=== PATIENT | female | born 1965 | race Caucasian/White ===

== ENCOUNTER 2017-09-20 16:47 | Outpatient (CLI) | payer MEDICAID ==
--- NOTE | 2017-09-20 17:34 | XRAY Preliminary Report ---
Exam: XR ABDOMEN ACUTE IMPRESSION: Negative abdominal series (including 1-view chest). [facility] SITE ID: [id number]
--- NOTE | 2017-09-20 17:37 | XRAY Report ---
EXAM: ABDOMINAL SERIES AND PA CHEST EXAM DATE: 09/20/2017 05:24 PM. CLINICAL HISTORY: ABD PAIN,NAUSEA,POST COLONOSCOPY. COMPARISON: None. TECHNIQUE: 2 views abdomen and 1 view chest. FINDINGS: CHEST: Lungs/Pleura: No focal opacities. No effusion or pneumothorax. Mediastinum: Within exam limitations, cardiomediastinal contour is normal. ABDOMEN: Bowel Gas Pattern: Within normal limits. No dilated loops or abnormal fluid levels. Free Air: None. Other: None. IMPRESSION: Negative abdominal series (including 1-view chest). [facility] Referring Provider Line: [phone] SITE ID: [id number]
== END 2017-09-20 16:48 | disposition home or self-care (01) ==
LOC: DI 16:47
PROVIDERS: ATTEND Specialist
DX: R10.9 Unspecified abdominal pain (principal); R11.0 Nausea
CPT/HCPCS: 74022

== ENCOUNTER 2017-12-24 19:34 | Outpatient (CLI) | payer MEDICAID | END 2017-12-24 19:35 | disposition critical access hospital (66) | LOC: EMS 19:34 | PROVIDERS: ATTEND Surgery | DX: R50.9 Fever, unspecified (principal); R11.2 Nausea with vomiting, unspecified | CPT/HCPCS: A0425; A0429 ==

== ENCOUNTER 2017-12-24 19:42 | Emergency (ER) | payer MEDICAID ==
[2017-12-24] MEDS ORDERED: KETOROLAC 60 MG/2 ML VIAL IVP STA (20:26)
[2017-12-24] MEDS ORDERED: ONDANSETRON 4 MG/2 ML VIAL IVP STA (20:26)
[2017-12-24] MEDS ORDERED: SODIUM CHLORIDE 0.9% 1,000 ML IV ONE ×2 (20:26→22:42)
[2017-12-24] MEDS ORDERED: ACETAMINOPHEN 500 MG TABLET PO STA (21:17)
[2017-12-24] MEDS ORDERED: PSEUDOEPHEDRINE 30 MG TABLET PO STA (21:17)
--- NOTE | 2017-12-24 21:19 | ED Physician Documentation ---
PD HPI URI - Stated complaint Stated Complaint: FEVER - Chief complaint Chief Complaint: Fever - History obtained from History obtained from: Patient - History of Present Illness Timing - onset: How many days ago (2) Timing details: Gradual onset, Still present Associated symptoms: Fever, Chills, Sweats, Nasal congestion, Rhinorrhea, Sinus pain, Dry cough Contributing factors: No: Sick contact, Travel Similar symptoms before: Has not had sx before Recently seen: Not recently seen - Additional information Additional information: Patient is a 37 year old female presenting to the emergency department for fevers, chills, cough, nasal congestion and nausea. Patient states that the symptoms have been going on for the last couple of days. Patient denies sick contacts or theses symptoms before. Patient has a history of colon CA but has been in remission for a number of years. Patient states that she is on disability for irritable bowel. Review of Systems Constitutional: reports: Fever, Chills, Myalgias Eyes: denies: Decreased vision Ears: reports: Ear pain Nose: reports: Rhinorrhea / runny nose, Congestion, Sinus pressure / pain Throat: reports: Sore throat Cardiac: denies: Chest pain / pressure, Palpitations Respiratory: reports: Cough. denies: Wheezing GI: reports: Abdominal Pain, Nausea. denies: Vomiting, Constipation, Diarrhea : denies: Dysuria, Frequency Skin: denies: Rash, Lesions Musculoskeletal: reports: Neck pain, Back pain, Extremity pain, Joint pain Neurologic: reports: Generalized weakness. denies: Focal weakness, Numbness Immunocompromised: denies: Immunocompromised, Chemotherapy PD PAST MEDICAL HISTORY - Past Medical History Past Medical History: Yes GI: Other Other Past Medical History: colon CA - Past Surgical History Past Surgical History: No - Present Medications Home Medications: Ambulatory Orders Medication Instructions Recorded Confirmed Ondansetron Odt [Zofran] 4 mg TL Q6H PRN #20 tablet 12/24/17 - Allergies Allergies/Adverse Reactions: Allergies Allergy/AdvReac Type Severity Reaction Status Date / Time decongestant Allergy Hives Uncoded 12/24/17 19:57 - Social History Does the pt smoke?: No Smoking Status: Never smoker Does the pt drink ETOH?: No Does the pt have substance abuse?: No - Immunizations Immunizations are current?: No - POLST Patient has POLST: No PD ED PE NORMAL - Vitals Vital signs reviewed: Yes - General General: Alert and oriented X 3 - HEENT HEENT: Atraumatic, PERRL - Neck Neck: Supple, no meningeal sign - Cardiac Cardiac: RRR, No murmur - Respiratory Respiratory: No respiratory distress - Abdomen Abdomen: Soft, Non tender, Non distended - Derm Derm: Normal color, Warm and dry, No rash - Extremities Extremities: No deformity - Neuro Neuro: Alert and oriented X 3, No motor deficit, No sensory deficit, Normal speech Eye Opening: Spontaneous Motor: Obeys Commands Verbal: Oriented GCS Score: 15 PD ED PE EXPANDED - HEENT HEENT: Atraumatic, PERRL, R TM bulging, L TM bulging, Right frontal sinus TTP, Left frontal sinus TTP, Nasal congestion, Rhinorrhea, Pharynx normal Results - Vitals Vitals: Vital Signs - 24 hr 12/24/17 12/24/17 12/24/17 19:55 20:15 21:11 Temperature 38.3 C H 36.8 C 38.1 C H Heart Rate 89 Respiratory 15 Rate Blood Pressure 106/63 O2 Saturation 96 12/24/17 12/24/17 12/25/17 22:47 23:53 00:14 Temperature 37.5 C 37 C Heart Rate 81 78 72 Respiratory 16 16 Rate Blood Pressure 81/48 L 91/56 L 94/58 L O2 Saturation 94 94 98 Oxygen O2 Source Room air - Labs Labs: Laboratory Tests 12/24/17 20:37 Influenza A (Rapid) Negative Influenza B (Rapid) POSITIVE H Influenza Types A,B Ag + H PD MEDICAL DECISION MAKING - ED course Complexity details: reviewed old records, reviewed results, re-evaluated patient , considered differential, d/w patient ED course: Patient was seen and examined at bedside. IV access was gained and labs were drawn. flu swab was performed. Patient was treated with toradol, zofran and a fluid bolus. Patient's flu came back positive. patient was borderline hypotensive and was treated with a second liter of fluid. Patient was able to tolerate PO and was stable for discharge with outpatient follow up. Departure - Departure Disposition: 01 Home, Self Care Clinical Impression: Influenza B Condition: Good Instructions: ED Flu Follow-Up: Ashly Funez PA-C [Primary Care Provider] - Within 3 Days Prescriptions: Ondansetron Odt [Zofran] 4 mg TL Q6H PRN #20 tablet PRN Reason: Nausea / Vomiting Comments: Your symptoms are being caused by influenza b. There is no specfic treatment for the flu, only to treat the symptoms. You can take over the counter cold and flu medications. You will be prescribed zofran for nausea and make sure you stay well hydrated with water or electrolyte solution. You should drink at least 100oz of fluids daily. You should follow up with your doctor if your symptoms don't improve. You may return to the emergency department at any time for new, worsening or uncontrollable symptoms. Discharge Date/Time: 12/25/17 01:16
[2017-12-25 00:15] VITALS: BP 94/58
== END 2017-12-25 01:16 | disposition home or self-care (01) ==
LOC: EDUNIT# → EDBD → ED 19:42
DX: J10.1 Influenza due to other identified influenza virus with other respiratory manifestations (principal); I95.9 Hypotension, unspecified; Z85.038 Personal history of other malignant neoplasm of large intestine
CPT/HCPCS: 87275; 87276; 96361; 96374; 96375; 99284; A9270

== ENCOUNTER 2018-05-02 12:50 | Emergency (ER) | payer MEDICAID ==
[2018-05-02] MEDS ORDERED: SODIUM CHLORIDE 0.9% 1,000 ML IV ONE (13:19)
--- NOTE | 2018-05-02 13:22 | ED Physician Documentation ---
PD HPI ABD PAIN - Stated complaint Stated Complaint: DIARRHEA/DIZZY - Chief complaint Chief Complaint: Abd Pain - History obtained from History obtained from: Patient - History of Present Illness Timing - onset: Other ((Pronounced O-diego). This is a 52-year-old woman who about 7 years ago was diagnosed with colon cancer, she had what she estimates as a 6 inch colectomy with temporary ileostomy that was later reversed. 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 However even at her baseline she says she has 20 bowel movements a day of small formed stools, but this became acutely worse about 7 days ago with diffuse abdominal pain and watery diarrhea that she cannot control. She actually has not eaten in about 24 hours because she is scared of having so many bowel movements. She is taken psyllium husk's and some pain medication which do not really help. Ask if she is ever been on cholestyramine or Imodium and she thinks she has been on Imodium before but not cholestyramine.) Review of Systems Ten Systems: 10 systems reviewed and negative Constitutional: reports: Fatigue. denies: Fever, Chills Cardiac: denies: Chest pain / pressure, Palpitations Respiratory: denies: Dyspnea, Cough GI: reports: Diarrhea, Bloody / black stool (Small amount of bright red blood per rectum which is not uncommon for her. She has what she describes as a normal colonoscopy at another facility last year.). denies: Abdominal Pain PD PAST MEDICAL HISTORY - Past Medical History Past Medical History: Yes GI: Other - Past Surgical History Past Surgical History: No - Present Medications Home Medications: Ambulatory Orders Medication Instructions Recorded Confirmed Ondansetron Odt [Zofran] 4 mg TL Q6H PRN #20 tablet 12/24/17 Cholestyramine [Questran] 4 gm PO DAILY #40 packet 05/02/18 Loperamide [Imodium] 2 mg PO QID PRN #20 capsule 05/02/18 - Allergies Allergies/Adverse Reactions: Allergies Allergy/AdvReac Type Severity Reaction Status Date / Time decongestant Allergy Hives Uncoded 05/02/18 13:02 - Social History Does the pt smoke?: No Smoking Status: Never smoker Does the pt drink ETOH?: No Does the pt have substance abuse?: No - Family History Family history: reports: Non contributory - Immunizations Immunizations are current?: No - POLST Patient has POLST: No PD ED PE NORMAL - Vitals Vital signs reviewed: Yes - General General: Alert and oriented X 3, No acute distress - HEENT HEENT: PERRL, EOMI - Neck Neck: Supple, no meningeal sign, No bony TTP - Cardiac Cardiac: RRR, No murmur - Respiratory Respiratory: No respiratory distress, Clear bilaterally - Abdomen Abdomen: Normal bowel sounds, Soft, Other (While I am examining her she persistently is saying that she is "tender" but makes no overt sign of tenderness with palpation.) - Back Back: No CVA TTP, No spinal TTP - Derm Derm: Normal color, Warm and dry - Extremities Extremities: No deformity, No tenderness to palpate, No edema, No calf tenderness / cord - Neuro Neuro: Alert and oriented X 3, Normal speech Results - Vitals Vitals: Vital Signs - 24 hr 05/02/18 05/02/18 05/02/18 12:58 14:46 16:47 Temperature 36.8 C 36.6 C Heart Rate 75 53 L 70 Respiratory 16 18 18 Rate Blood Pressure 114/68 87/64 L 101/58 L O2 Saturation 97 99 100 Oxygen O2 Source Room air - Labs Labs: Microbiology 05/02/18 15:30 Campylobacter Antigen Assay - Final Stool Laboratory Tests 05/02/18 05/02/18 05/02/18 13:30 13:30 13:30 WBC 5.5 RBC 4.52 Hgb 14.3 Hct 42.9 MCV 94.9 MCH 31.7 H MCHC 33.4 RDW 13.7 Plt Count 251 MPV 7.0 L Neut # (Auto) 3.3 Lymph # (Auto) 1.6 Morrill # (Auto) 0.4 Eos # (Auto) 0.2 Baso # (Auto) 0.0 Absolute Nucleated RBC 0.00 Nucleated RBC % 0.0 Sodium 137 Potassium 3.7 Chloride 105 Carbon Dioxide 24 Anion Gap 8.0 BUN 16 Creatinine 0.8 Estimated GFR (MDRD) 75 L Glucose 80 Calcium 8.9 Total Bilirubin 0.9 AST 17 ALT 10 Alkaline Phosphatase 79 Total Protein 7.1 Albumin 3.7 Globulin 3.4 Albumin/Globulin Ratio 1.1 Lipase 21 L TSH 0.66 - Rads (name of study) Ct A/P Radiology: EMP read contemporaneously (Normal with the exception of pelvic venous congestion and right renal lithiasis.) PD MEDICAL DECISION MAKING - ED course ED course: This is a 52-year-old woman with an extensive exacerbation of acute on chronic diarrhea. Her blood work and CT are reassuring. After stool sample was obtained which she was treated with cholestyramine and Imodium and GI/oncologic and primary care follow-up were advised. After the diagnostic she was fed, it still took quite a bit of time for her to produce a stool sample despite the severity of her diarrhea. The stool was rejected by the lab for several test because it was formed stool, not diarrhea. - Sepsis Event Vital Signs: Vital Signs - 24 hr 05/02/18 05/02/18 05/02/18 12:58 14:46 16:47 Temperature 36.8 C 36.6 C Heart Rate 75 53 L 70 Respiratory 16 18 18 Rate Blood Pressure 114/68 87/64 L 101/58 L O2 Saturation 97 99 100 Oxygen O2 Source Room air Departure - Departure Disposition: 01 Home, Self Care Clinical Impression: Abdominal pain, Diarrhea Condition: Good Record reviewed to determine appropriate education?: Yes Instructions: Abdominal Pain Follow-Up: [facility] [Provider Group] Lizett Holliday MD [Provider Admit Priv/Credential] - Jeannette Lu MD [Physician No Access] - Prescriptions: Cholestyramine [Questran] 4 gm PO DAILY #40 packet Loperamide [Imodium] 2 mg PO QID PRN #20 capsule PRN Reason: Diarrhea Comments: The names of local GI, oncology and primary care follow-up are on the form for your convenience to call and make appointments. Return if worsening or if new symptoms develop. The cholestyramine can be doubled to twice a day if ineffective at the once a day dose, that is the binding resin. Discharge Date/Time: 05/02/18 16:52
[2018-05-02] MEDS ORDERED: IOPAMIDOL-300 100 ML VIAL ONE (13:37)
[2018-05-02 13:42] LABS: BASOPHILS % (AUTO) 0.9 %; EOSINOPHILS # (AUTO) 0.2 10^3/uL (0.0-0.7); EOSINOPHILS % (AUTO) 3.8 %; HGB - HEMOGLOBIN 14.3 g/dL (12.0-16.0); LYMPHOCYTES # (AUTO) 1.6 10^3/uL (1.5-3.5); MEAN CORPUSCULAR HEMOGLOBIN 31.7 pg (27.0-31.0); MEAN CORPUSCULAR HGB CONC 33.4 g/dL (32.0-36.0); MEAN CORPUSCULAR VOLUME 94.9 fL (81.0-99.0); MONOCYTES # (AUTO) 0.4 10^3/uL (0.0-1.0); MONOCYTES % (AUTO) 6.8 %; NEUTROPHILS # (AUTO) 3.3 10^3/uL (1.5-6.6); NEUTROPHILS % (AUTO) 59.5 %; PLT - PLATELET COUNT 251 10^3/uL (130-450); RED BLOOD COUNT 4.52 10^6/uL (4.20-5.40); RED CELL DISTRIBUTION WIDTH 13.7 % (12.0-15.0); WHITE BLOOD COUNT 5.5 x10^3/uL (4.8-10.8)
[2018-05-02 14:01] LABS: ALBUMIN 3.7 g/dL (3.2-5.5); ALBUMIN/GLOBULIN RATIO 1.1 (1.0-2.2); BILIRUBIN,TOTAL 0.9 mg/dL (0.2-1.0); CALCIUM 8.9 mg/dL (8.5-10.3); CREATININE 0.8 mg/dL (0.4-1.0); TOTAL PROTEIN 7.1 g/dL (6.7-8.2)
[2018-05-02] MEDS ORDERED: IOPAMIDOL-300 100 ML VIAL IVP ONE (14:24)
--- NOTE | 2018-05-02 14:47 | CT Report ---
Procedure Date: 05/02/2018 Accession Number: [id number] / [id number] Procedure: CT - Abdomen/Pelvis W/ CPT Code: FULL RESULT: EXAM: CT ABDOMEN AND PELVIS EXAM DATE: 05/02/2018 02:25 PM. CLINICAL HISTORY: Abdominal pain COMPARISONS: None. TECHNIQUE: Routine helical CT imaging was performed through the abdomen and pelvis. IV contrast: 100 cc Isovue-300. Enteric contrast: No. Reconstructions: Coronal and sagittal. In accordance with CT protocol optimization, one or more of the following dose reduction techniques were utilized for this exam: automated exposure control, adjustment of mA and/or KV based on patient size, or use of iterative reconstructive technique. FINDINGS: Lung Bases: Unremarkable. Liver: Subcentimeter hypodensity within segment 8 of the liver is too small to characterize. No suspicious hepatic abnormalities are seen. Gallbladder/Bile Ducts: Unremarkable. Spleen: Normal. Pancreas: Normal. Adrenal Glands: Normal. Kidneys: There is right nephrolithiasis. There is no evidence of hydronephrosis. There is a left parapelvic cyst. Peritoneal Cavity/Bowel: Stomach, small bowel, and colon demonstrate no acute abnormalities. No intraperitoneal free air or free fluid. No enlarged mesenteric or retroperitoneal lymph nodes. There are surgical sutures adjacent to the distal ileum and within the low rectal region. The appendix is well visualized and normal. Pelvic Organs: Uterus and adnexa demonstrate no acute abnormalities. There are prominent periuterine veins. The urinary bladder is decompressed. Vasculature: No aneurysms or other significant abnormality. Bones: No significant abnormality. Other: Patient has undergone anterior abdominal wall hernia repair. IMPRESSION: 1. No acute solid or hollow viscus organ abnormalities to account for the patient's presentation. No evidence of appendicitis or bowel obstruction. No mesenteric inflammation. 2. There is right nephrolithiasis. No evidence of distal obstructing stone or hydronephrosis. 3. There are prominent periuterine veins. This is nonspecific but can be associated with pelvic pain. [facility]
[2018-05-02] MEDS ORDERED: CHOLESTYRAMINE 4 GM PACKET PO STA (14:58)
[2018-05-02] MEDS ORDERED: LOPERAMIDE 2 MG CAPSULE PO STA (14:58)
[2018-05-02 16:47] VITALS: BP 101/58
== END 2018-05-02 16:52 | disposition home or self-care (01) ==
LOC: ED 12:50
DX: R10.9 Unspecified abdominal pain (principal); R19.7 Diarrhea, unspecified; C18.9 Malignant neoplasm of colon, unspecified
CPT/HCPCS: 36415; 74177; 80053; 83690; 84443; 85025; 87045; 87046; 87177; 87209; 87493; 96360; 96361; 99284; A9270; Q9967

== ENCOUNTER 2018-11-19 07:49 | Outpatient (CLI) | payer MEDICAID ==
[2018-11-19 08:15] LABS: BASOPHILS % (AUTO) 0.8 %; EOSINOPHILS # (AUTO) 0.4 10^3/uL (0.0-0.7); EOSINOPHILS % (AUTO) 8.6 %; HGB - HEMOGLOBIN 14.5 g/dL (12.0-16.0); LYMPHOCYTES # (AUTO) 1.4 10^3/uL (1.5-3.5); LYMPHOCYTES % (AUTO) 32.3 %; MEAN CORPUSCULAR HGB CONC 33.9 g/dL (32.0-36.0); MEAN CORPUSCULAR VOLUME 94.5 fL (81.0-99.0); MEAN PLATELET VOLUME 7.2 fL (7.9-10.8); MONOCYTES # (AUTO) 0.4 10^3/uL (0.0-1.0); MONOCYTES % (AUTO) 8.1 %; NEUTROPHILS # (AUTO) 2.2 10^3/uL (1.5-6.6); NEUTROPHILS % (AUTO) 50.2 %; PLT - PLATELET COUNT 229 10^3/uL (130-450); RED BLOOD COUNT 4.51 10^6/uL (4.20-5.40); RED CELL DISTRIBUTION WIDTH 14.2 % (12.0-15.0); WHITE BLOOD COUNT 4.4 x10^3/uL (4.8-10.8)
[2018-11-19 08:26] LABS: ALBUMIN 3.7 g/dL (3.2-5.5); ALBUMIN/GLOBULIN RATIO 1.2 (1.0-2.2); ALKALINE PHOSPHATASE 86 IU/L (42-121); ALT ALANINE AMINOTRANSFERASE 11 IU/L (10-60); AST ASPARTATE AMINOTRANSFERASE 18 IU/L (10-42); BILIRUBIN,TOTAL 0.6 mg/dL (0.2-1.0); BUN - BLOOD UREA NITROGEN 18 mg/dL (6-20); CALCIUM 8.8 mg/dL (8.5-10.3); CARBON DIOXIDE - CO2 25 mmol/L (21-32); CHLORIDE 105 mmol/L (101-111); CHOL/HDL RATIO 2.7 (<4.4); CHOLESTEROL 189 mg/dL; CREATININE 0.6 mg/dL (0.4-1.0); GFR - MDRD 104 (>89); GLUCOSE 101 mg/dL (70-100); HDL CHOLESTEROL 70 mg/dL; LDL CHOLESTEROL,CALCULATED 109 mg/dL; LDL/HDL RATIO 1.6 (<4.4); SODIUM 137 mmol/L (135-145); TOTAL PROTEIN 6.9 g/dL (6.7-8.2); TROPONIN I < 0.04 ng/mL (<0.49); VLDL CHOLESTEROL 10 mg/dL
[2018-11-19 08:28] LABS: CREATINE KINASE MB 1.2 ng/mL (0.6-6.3)
== END 2018-11-19 07:50 | disposition home or self-care (01) ==
LOC: LAB 07:49
PROVIDERS: ATTEND Family Medicine
DX: R00.2 Palpitations (principal)
CPT/HCPCS: 36415; 80053; 80061; 82553; 83721; 84443; 84484; 85025; 85379

== ENCOUNTER 2018-12-23 15:15 | Outpatient (CLI) | payer MEDICAID ==
[2018-12-24 13:32] LABS: HEPATITIS C ANTIBODY NON-REACTIVE (NON-REACTIVE)
[2018-12-24 15:32] LABS: HIV AG/AB 4TH GEN NON-REACTIVE (NON-REACTIVE)
== END 2018-12-23 23:59 | disposition home or self-care (01) ==
LOC: LAB.WCP 15:15
PROVIDERS: ATTEND Family Medicine
DX: Z11.3 Encounter for screening for infections with a predominantly sexual mode of transmission (principal)
CPT/HCPCS: 36415; 81599; 86592; 86803; 87389; 87480; 87510; 87660

== ENCOUNTER 2019-02-26 11:25 | Outpatient (CLI) | payer MEDICAID ==
--- NOTE | 2019-02-26 12:04 | XRAY Report ---
Reason: HAND JOINT,RIGHT Procedure Date: 02/26/2019 Accession Number: [id number] / [id number] Procedure: WCP - Hand 2 View RT CPT Code: FULL RESULT: EXAM: RIGHT HAND RADIOGRAPHY EXAM DATE: 02/26/2019 11:42 AM. CLINICAL HISTORY: Patient has a foreign body in the soft tissue of the proximal phalanx of the fifth digit. This foreign body has been present for 3 months. COMPARISON: None. TECHNIQUE: 2 views. FINDINGS: Bones: Normal. No fractures or bone lesions. Joints: There are mild degenerative changes at the first carpometacarpal interaction. No significant degenerative changes are seen at the interphalangeal interactions and no erosions are detected. There is no subluxation. Soft Tissues: Predominant volar swelling of the soft tissues of the little finger is identified without a visible foreign body. IMPRESSION: Soft tissue swelling of the proximal fifth digit without radiopaque foreign body detected. If clinical examination is suggestive of lipoma or a collection and radiologic confirmation is desired, ultrasound represents a good modality. [facility]
== END 2019-02-26 11:26 | disposition home or self-care (01) ==
LOC: DI.WCP 11:25
PROVIDERS: ATTEND Family Medicine
DX: M79.641 Pain in right hand (principal); R22.31 Localized swelling, mass and lump, right upper limb

== ENCOUNTER 2019-03-23 15:07 | Outpatient (CLI) | payer MEDICAID ==
--- NOTE | 2019-04-03 11:38 | Mammography Report ---
Reason: SCREENING MAMMOGRAM Procedure Date: 03/23/2019 Accession Number: [id number] / [id number] Procedure: ADELINA - Screening Mammo Dig Bilat CPT Code: FULL RESULT: EXAM: Screening Mammo Dig Bilat DATE: 03/23/2019 3:46 PM CLINICAL HISTORY: Screening TECHNIQUE: (B) - Bilateral CC and MLO views were obtained. COMPARISON: 12/12/2011 PARENCHYMAL PATTERN: (A) - The breasts demonstrate scattered fibroglandular densities bilaterally. FINDINGS: Small breast asymmetry left breast only, seen only on CC view lateral hemisphere, middle one third. Otherwise, there are no suspicious masses, calcifications, or areas of distortion. IMPRESSION: Incomplete examination. BI-RADS category 0. RECOMMENDATION: Consider left breast 3-D mammography and left breast ultrasound if indicated. BI-RADS CATEGORY: (0) - Incomplete Examination - need additional evaluation. STANDARD QUALIFYING STATEMENTS: 1. This examination was not reviewed with the aid of Computer-Aided Detection (CAD). 2. A negative or benign imaging report should not preclude biopsy if clinically suspicious findings are present. 3. Dense breasts may obscure an underlying neoplasm. 4. This examination was reviewed without the aid of 3D breast imaging (tomosynthesis).
== END 2019-03-23 15:08 | disposition home or self-care (01) ==
LOC: DI 15:07
PROVIDERS: ATTEND Family Medicine
DX: Z12.31 Encounter for screening mammogram for malignant neoplasm of breast (principal); R92.8 Other abnormal and inconclusive findings on diagnostic imaging of breast
CPT/HCPCS: 77067

== ENCOUNTER 2019-03-24 07:33 | Day surgery (SDC) | payer MEDICAID ==
[~2019-03-24 07:33] MED LIST: CEFAZOLIN SODIUM IN 0.9 % NACL 2 GM/100 ML BAG IV ONE
[2019-03-24] MEDS ORDERED: BUPIVACAINE 0.25% PF 30 ML VIAL ONE (07:54)
[2019-03-24] MEDS ORDERED: LACTATED RINGERS 1,000 ML IV ONE (07:58)
--- NOTE | 2019-03-24 08:13 | ANESTHESIA ---
Pre-Anesthesia VS, & Labs - Diagnosis Foreign body right fifth finger - Procedure Excise FB right fifth finger Vital Signs: Temp Pulse Resp BP Pulse Ox 36.2 C L 61 16 96/69 99 03/24/19 07:50 03/24/19 07:50 03/24/19 07:50 03/24/19 07:50 03/24/19 07:50 Height 5 ft 4 in Weight (kg) 84.2 kg Body Mass Index 30.9 - NPO >8 hours - Is Patient ?: No - Lab Results Lab results reviewed: No Home Medications and Allergies Home Medications: Ambulatory Orders HYDROcod/ACETAM 5/325 [Horton 5/325] 1 - 2 ea PO Q6H PRN 03/23/19 HYDROcod/ACETAM 5/325 [Horton 5/325] 1 - 2 ea PO Q6H PRN 03/23/19 Allergies/Adverse Reactions: Allergies Allergy/AdvReac Type Severity Reaction Status Date / Time decongestant Allergy Hives Uncoded 05/02/18 13:02 Anes History & Medical History - Anesthetic History Anesthesia Complications: reports: No previous complications Family history of Anesthesia Complications: Denies Family history of Malignant Hyperthermia: Denies - Medical History Cardiovascular: reports: None Pulmonary: reports: None, Other (Severe post nasal drip) Gastrointestinal: reports: GERD, Other Urinary: reports: Kidney stones Neuro: reports: None Musculoskeletal: reports: Osteoarthritis, Gout Endocrine/Autoimmune: reports: None Blood Disorders: reports: None Skin: reports: None Smoking Status: Never smoker Psychosocial: reports: No issues indicated - Surgical History General: Bowel surgery, Colonoscopy, Other Orthopedic: Other Exam General: Alert, Oriented x3, Cooperative Dental: WNL Mouth Opening: Greater than 4 Fingerbreadths Neck Mobility: Normal Mallampati classification: I Thyromental Distance: greater than 6 cm Respiratory: Lungs clear Cardiovascular: Regular rate Neurological: Normal speech Mental/Cognitive Status: Alert/Oriented X3, Normal for patient Cognitive Status: Within normal limits Plan Anesthesia Type: MAC Consent for Procedure(s) Verified and Reviewed: Yes Code Status: Attempt Resuscitation ASA classification: 2-Mild systemic disease Is this case an emergency?: No
[2019-03-24] MEDS ORDERED: KETOROLAC 30 MG/ML VIAL IVP ONE (08:30)
[2019-03-24] MEDS ORDERED: MIDAZOLAM 2 MG/2 ML VIAL IVP ONE (08:30)
[2019-03-24] MEDS ORDERED: KETAMINE 500 MG/10 ML VIAL IVP ONE (08:30)
[2019-03-24] MEDS ORDERED: SODIUM CHLORIDE 0.9% 10 ML VIAL IV ONE (08:30)
[2019-03-24] MEDS ORDERED: BUPIVACAINE 0.25% PF 30 ML VIAL SUBQ ONE ×2 (08:46)
[2019-03-24] MEDS ORDERED: HYDROcod/ACETAM 5/325 MG TABLET PO PRN (09:10)
[2019-03-24] MEDS ORDERED: HYDROcod/ACETAM 5/325 MG TABLET ONE (10:25)
[2019-03-24 10:38] VITALS: BP 127/65
--- NOTE | 2019-03-24 14:13 | OPERATIVE REPORT ---
DATE OF SERVICE: 03/24/2019 Physician: Omayra Ayala MD PREOPERATIVE DIAGNOSIS: Foreign body proximal right fifth finger. POSTOPERATIVE DIAGNOSIS: Foreign body proximal right fifth finger. PROCEDURE PERFORMED: Excision of foreign body from right fifth finger. ATTENDING SURGEON: Omayra Ayala MD. ANESTHESIA: Local, MAC with Mary Lou Waller MD INDICATIONS FOR SURGERY: Patient is a 53-year-old female who remotely has had a penetrating injury o f her finger and she believes it was wood versus glass that penetrated her finger with a tiny punctur e wound and then subsequent healing, but tenderness and pain over the months that followed with a pro minence in the volar tissues and in the area of the proximal phalanx of the fifth finger not interfer ing with tendon function or neurovascular function. She presented to my office with negative x-rays, but soft tissue swelling and symptoms that suggested retained radiolucent foreign body and surgery w as recommended. The patient was informed that excision would require a slightly extensile exposure b ecause of its probable location adjacent to the ulnar digital nerve and bundle. DESCRIPTION OF OPERATIVE PROCEDURE: Patient was taken to the operating room. She was given light se dation and a digital block anesthetic using 1% lidocaine and 0.25% Marcaine plain, approximately 6-7 mL in the base of the finger. The Esmarch was used as a tourniquet, placing the Esmarch tight up to the volar mid forearm. Following a surgical timeout, the procedure progressed with a slightly extens ile incision in a V-shape extending from the proximal crease of the finger to the PIP joint crease an d extending slightly beyond that to gain better exposure. In the subcutaneous tissue was found a sli ght amount of foreign body reaction and not purulence, but some brownish discolored tissue. In the m iddle of this tissue was found a very black-appearing sliver of wood about 12 mm in length and at its base, a few millimeters in width and very much wedge needle shaped. The base of this was sitting di rectly under the ulnar neurovascular bundle and the sliver was able to be extracted. The area was th en flushed thoroughly and closure was then performed utilizing interrupted 4-0 nylon suture and steri le dressings were applied. The patient was taken to the recovery room in stable condition. ESTIMATED BLOOD LOSS: Minimal, less than 5 mL. COMPLICATIONS: None. SPONGE AND NEEDLE COUNTS: Correct. TD: 03/24/2019 10:48
== END 2019-03-24 07:34 | disposition home or self-care (01) ==
LOC: SDS 07:33
PROVIDERS: ATTEND Orthopaedic Surgery
PROC: 0JCJ0ZZ Extirpation of Matter from Right Hand Subcutaneous Tissue and Fascia, Open Approach (ICD-10-PCS; principal; 2019-03-24 08:30)
DX: S61.246A Puncture wound with foreign body of right little finger without damage to nail, initial encounter (principal); W45.8XXA Other foreign body or object entering through skin, initial encounter; W22.8XXA Striking against or struck by other objects, initial encounter; Y92.003 Bedroom of unspecified non-institutional (private) residence as the place of occurrence of the external cause; E66.9 Obesity, unspecified; Z68.31 Body mass index [BMI] 31.0-31.9, adult; Z87.891 Personal history of nicotine dependence; Z85.038 Personal history of other malignant neoplasm of large intestine; Z90.49 Acquired absence of other specified parts of digestive tract
CPT/HCPCS: 10120; A9270; J0690; J7120

== ENCOUNTER 2019-04-14 12:47 | Outpatient (CLI) | payer MEDICAID ==
--- NOTE | 2019-04-14 13:59 | Mammography Report ---
Reason: ABNORMAL MAMMOGRAM Procedure Date: 04/14/2019 Accession Number: [id number] / [id number] Procedure: ADEILNA - Diag Special Views Dig LT CPT Code: FULL RESULT: EXAM: Diag Special Views Dig LT DATE: 04/14/2019 1:11 PM CLINICAL HISTORY: Diagnostic examination. The patient is recalled from screening for a left breast asymmetry. TECHNIQUE: (L) - Left left spot CC and ML images are obtained. Focused left breast ultrasound is performed. COMPARISON: 03/23/2019 and 12/12/2011. PARENCHYMAL PATTERN: (A) - The breast(s) demonstrate(s) scattered fibroglandular densities. FINDINGS: In the left upper outer breast approximately 10 cm from the nipple on the MLO view and CC view is a isodense well-circumscribed 5 mm focal asymmetry. Additional left upper outer breast quadrant focused ultrasound reveals only normal soft tissues with no abnormal mass, architectural distortion or collection. The finding is not definitely sonographically replicated. Spot compression view demonstrates normal breast tissue in the left upper outer breast, area of previous concern. There are no suspicious masses, calcifications, or areas of distortion. IMPRESSION: Benign findings. BI-RADS category 2. RECOMMENDATION: (ANNUAL) - Recommend routine annual screening mammography. BI-RADS CATEGORY: (2) - Benign Findings. STANDARD QUALIFYING STATEMENTS: 1. This examination was not reviewed with the aid of Computer-Aided Detection (CAD). 2. A negative or benign imaging report should not preclude biopsy if clinically suspicious findings are present. 3. Dense breasts may obscure an underlying neoplasm. 4. This examination was reviewed without the aid of 3D breast imaging (tomosynthesis).
== END 2019-04-14 12:48 | disposition home or self-care (01) ==
LOC: DI 12:47
PROVIDERS: ATTEND Family Medicine
DX: R92.8 Other abnormal and inconclusive findings on diagnostic imaging of breast (principal)
CPT/HCPCS: 76642

== ENCOUNTER 2020-09-30 07:00 | Outpatient (CLI) | payer MEDICAID ==
[2020-09-30 18:15] LABS: BASOPHILS # (AUTO) 0.1 10^3/uL (0.0-0.1); BASOPHILS % (AUTO) 0.9 %; EOSINOPHILS # (AUTO) 0.5 10^3/uL (0.0-0.7); EOSINOPHILS % (AUTO) 7.8 %; HGB - HEMOGLOBIN 14.3 g/dL (12.0-16.0); LYMPHOCYTES % (AUTO) 35.4 %; MEAN PLATELET VOLUME 9.5 fL (7.9-10.8); MONOCYTES # (AUTO) 0.5 10^3/uL (0.0-1.0); MONOCYTES % (AUTO) 8.7 %; NEUTROPHILS # (AUTO) 2.7 10^3/uL (1.5-6.6); NEUTROPHILS % (AUTO) 46.9 %; PLT - PLATELET COUNT 303 10^3/uL (130-450); RED BLOOD COUNT 4.47 10^6/uL (4.20-5.40); RED CELL DISTRIBUTION WIDTH 13.9 % (12.0-15.0); WHITE BLOOD COUNT 5.8 x10^3/uL (4.8-10.8)
[2020-09-30 18:47] LABS: ALBUMIN 3.9 g/dL (3.2-5.5); ALBUMIN/GLOBULIN RATIO 1.3 (1.0-2.2); ALKALINE PHOSPHATASE 99 IU/L (42-121); ALT ALANINE AMINOTRANSFERASE 16 IU/L (10-60); AST ASPARTATE AMINOTRANSFERASE 24 IU/L (10-42); BILIRUBIN,TOTAL 0.5 mg/dL (0.2-1.0); BUN - BLOOD UREA NITROGEN 18 mg/dL (6-20); CALCIUM 9.2 mg/dL (8.5-10.3); CARBON DIOXIDE - CO2 26 mmol/L (21-32); CHLORIDE 105 mmol/L (101-111); CREATININE 0.7 mg/dL (0.4-1.0); GLUCOSE 78 mg/dL (70-100); SODIUM 140 mmol/L (135-145); TOTAL PROTEIN 6.9 g/dL (6.7-8.2)
[2020-09-30 19:25] LABS: CRP - C-REACTIVE PROTEIN < 1.0 mg/dL (0-1.0)
[2020-09-30 19:37] LABS: RHEUMATOID FACTOR NEGATIVE (Negative)
== END 2020-09-30 23:59 | disposition home or self-care (01) ==
LOC: LAB.WCP 07:00
PROVIDERS: ATTEND Nurse Practitioner Family
DX: Z00.00 Encounter for general adult medical examination without abnormal findings (principal); M25.50 Pain in unspecified joint
CPT/HCPCS: 36415; 80053; 85025; 85651; 86140; 86430

== ENCOUNTER 2020-10-27 08:00 | Outpatient (CLI) | payer MEDICAID | END 2020-10-27 23:56 | disposition home or self-care (01) | LOC: LAB.R 08:00 | PROVIDERS: ATTEND Family Medicine | DX: L04.0 Acute lymphadenitis of face, head and neck (principal); Z20.822 Contact with and (suspected) exposure to COVID-19 | CPT/HCPCS: 87275; 87276 ==

== ENCOUNTER 2021-07-17 06:06 | Emergency (ER) | payer MEDICAID ==
[2021-07-17] MEDS ORDERED: SODIUM CHLORIDE 0.9% 1,000 ML IV STA (06:56)
--- NOTE | 2021-07-17 06:57 | ED Physician Documentation ---
PD HPI SYNCOPE - Stated complaint Stated Complaint: DIZZY/BLURRED VISION - Chief complaint Chief Complaint: Neuro - History obtained from History obtained from: Patient - History of Present Illness Witnessed: Unwitnessed Timing - onset: Today, Last night Preceding symptoms: Light headed (she says she felt lightheaded with blurred vision last night and again this morning with standing/sitting up. Denies vertigo, symptoms with head movement, nor vision loss (blurry and distorted).). No: Headache (but states her head "feels heavy"), Chest pain, Dyspnea, Abdominal pain, Nausea / vomiting Associated symptoms: Vision changes, Diaphoresis. No: Chest pain, Nausea / vomiting Contributing factors: Just stood up. No: Recent med change, Noxious stimulae Injury occurred: No: Fell, Head injury, Neck injury Similar symptoms before: Has not had sx before, Other (has had general fatigue and tiredness the past month. no noted wieght loss. Believes she has had normal fluid intake.) Recently seen: Not recently seen Review of Systems Constitutional: denies: Fever, Chills Nose: denies: Rhinorrhea / runny nose, Congestion Throat: denies: Sore throat Cardiac: denies: Chest pain / pressure, Palpitations, Pedal edema, Calf pain Respiratory: denies: Dyspnea, Cough GI: reports: Nausea. denies: Abdominal Pain, Vomiting, Diarrhea Neurologic: reports: Generalized weakness. denies: Syncope, Altered mental status, Head injury, LOC Endocrine: denies: Weight loss, Easy bruising / bleeding Immunocompromised: reports: Other (prior colon cancer 8 years ago localized with surgery and chemo. No recent problems. She is concerned about recurrence though.). denies: Immunocompromised PD PAST MEDICAL HISTORY - Past Medical History Past Medical History: Yes Respiratory: None, Other Neuro: None GI: Other (colon cancer 8 years ago, clear the past 7 years. ) Other Past Medical History: colon ca - Past Surgical History Past Surgical History: Yes - Present Medications Home Medications: Ambulatory Orders Medication Instructions Recorded Confirmed No Known Home Medications 07/17/21 07/17/21 - Allergies Allergies/Adverse Reactions: Allergies Allergy/AdvReac Type Severity Reaction Status Date / Time decongestant Allergy Hives Uncoded 07/17/21 06:20 - Social History Does the pt smoke?: No Smoking Status: Never smoker Does the pt drink ETOH?: No Does the pt have substance abuse?: No - Immunizations Immunizations are current?: No - POLST Patient has POLST: No PD ED PE NORMAL - Vitals Vital signs reviewed: Yes - General General: Alert and oriented X 3, No acute distress, Well developed/nourished - HEENT HEENT: PERRL, EOMI (no nystagmus), Pharynx benign. No: Moist mucous membranes - Neck Neck: Supple, no meningeal sign, No adenopathy - Cardiac Cardiac: No murmur. No: RRR (slightly irregular. 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 No: ST elevation c/w ischemia, ST depression Compare to prior EKG: Old EKG unavailable - Labs Labs: Laboratory Tests 07/17/21 07/17/21 07/17/21 06:34 06:34 06:34 WBC 5.8 RBC 4.75 Hgb 15.1 Hct 46.7 MCV 98.3 MCH 31.8 H MCHC 32.3 RDW 13.8 Plt Count 251 MPV 9.5 Neut # (Auto) 2.4 Lymph # (Auto) 2.5 [place] # (Auto) 0.5 Eos # (Auto) 0.4 Baso # (Auto) 0.1 Absolute Nucleated RBC 0.00 Nucleated RBC % 0.0 ESR 9 Sodium 141 Potassium 3.7 Chloride 106 Carbon Dioxide 25 Anion Gap 10.0 BUN 21 H Creatinine 0.6 Estimated GFR (MDRD) 103 Glucose 90 POC Whole Bld Glucose Calcium 8.9 Magnesium 2.1 Total Bilirubin 0.5 AST 16 ALT 11 Alkaline Phosphatase 92 Troponin I High Sens Total Protein 6.9 Albumin 4.0 Globulin 2.9 Albumin/Globulin Ratio 1.4 Lipase 28 CA 125 Antigen TSH 07/17/21 07/17/21 07/17/21 06:34 06:34 06:34 WBC RBC Hgb Hct MCV MCH MCHC RDW Plt Count MPV Neut # (Auto) Lymph # (Auto) [place] # (Auto) Eos # (Auto) Baso # (Auto) Absolute Nucleated RBC Nucleated RBC % ESR Sodium Potassium Chloride Carbon Dioxide Anion Gap BUN Creatinine Estimated GFR (MDRD) Glucose POC Whole Bld Glucose Calcium Magnesium Total Bilirubin AST ALT Alkaline Phosphatase Troponin I High Sens 3.6 Total Protein Albumin Globulin Albumin/Globulin Ratio Lipase CA 125 Antigen 9.8 TSH 2.84 07/17/21 06:36 WBC RBC Hgb Hct MCV MCH MCHC RDW Plt Count MPV Neut # (Auto) Lymph # (Auto) [place] # (Auto) Eos # (Auto) Baso # (Auto) Absolute Nucleated RBC Nucleated RBC % ESR Sodium Potassium Chloride Carbon Dioxide Anion Gap BUN Creatinine Estimated GFR (MDRD) Glucose POC Whole Bld Glucose 93 Calcium Magnesium Total Bilirubin AST ALT Alkaline Phosphatase Troponin I High Sens Total Protein Albumin Globulin Albumin/Globulin Ratio Lipase CA 125 Antigen TSH - Rads (name of study) head CT Radiology: Prelim report reviewed (no acute process), See rad report PD MEDICAL DECISION MAKING - ED course Complexity details: re-evaluated patient (feels less lightheaded after IV fluids. BP is relatively low for her age and not on any meds for it. ), considered differential (sounds like near syncope with vision changes posturally. Does not have vertigo component. But does have "heavy feeling" in head. an get head CT, but also eval ECG/Trop, Lytes, TSH. ), d/w patient Departure - Departure Disposition: 01 Home, Self Care Clinical Impression: Lightheadedness Fatigue Qualifiers: Fatigue type: unspecified Qualified Code(s): R53.83 - Other fatigue Condition: Stable Record reviewed to determine appropriate education?: Yes Instructions: ED Near Syncope Unkn Comments: Your head CT, ECG, blood tests are looking good. No signs of serious process at this time. Your blood pressure is relatively low here (but still "normal" range) at about 110 systolic. Your symptoms may relate to low blood pressure. Be sure to keep good hydration. Follow up with primary care. You could also add Vitamin D supplement (about 2000 units daily) and see if that helps your energy level (would not affect the BP itself). Discharge Date/Time: 07/17/21 09:03
[2021-07-17 07:18] LABS: BASOPHILS # (AUTO) 0.1 10^3/uL (0.0-0.1); BASOPHILS % (AUTO) 0.9 %; EOSINOPHILS # (AUTO) 0.4 10^3/uL (0.0-0.7); EOSINOPHILS % (AUTO) 6.5 %; HCT - HEMATOCRIT 46.7 % (37.0-47.0); HGB - HEMOGLOBIN 15.1 g/dL (12.0-16.0); LYMPHOCYTES # (AUTO) 2.5 10^3/uL (1.5-3.5); LYMPHOCYTES % (AUTO) 42.1 %; MEAN CORPUSCULAR HEMOGLOBIN 31.8 pg (27.0-31.0); MEAN CORPUSCULAR HGB CONC 32.3 g/dL (32.0-36.0); MEAN CORPUSCULAR VOLUME 98.3 fL (81.0-99.0); MEAN PLATELET VOLUME 9.5 fL (7.9-10.8); MONOCYTES # (AUTO) 0.5 10^3/uL (0.0-1.0); MONOCYTES % (AUTO) 9.2 %; NEUTROPHILS # (AUTO) 2.4 10^3/uL (1.5-6.6); NEUTROPHILS % (AUTO) 41.1 %; PLT - PLATELET COUNT 251 10^3/uL (130-450); RED BLOOD COUNT 4.75 10^6/uL (4.20-5.40); RED CELL DISTRIBUTION WIDTH 13.8 % (12.0-15.0); WHITE BLOOD COUNT 5.8 x10^3/uL (4.8-10.8)
[2021-07-17 07:24] LABS: ALBUMIN/GLOBULIN RATIO 1.4 (1.0-2.2); BILIRUBIN,TOTAL 0.5 mg/dL (0.2-1.0); CALCIUM 8.9 mg/dL (8.5-10.3); CREATININE 0.6 mg/dL (0.4-1.0); MAGNESIUM 2.1 mg/dL (1.7-2.8); POTASSIUM 3.7 mmol/L (3.5-5.0); TOTAL PROTEIN 6.9 g/dL (6.7-8.2)
--- NOTE | 2021-07-17 07:40 | CT Report ---
PROCEDURE: HEAD WO INDICATIONS: lightheaded/visual changes/headache TECHNIQUE: Noncontrast 4.5 mm thick angled axial sections acquired from the foramen magnum to the vertex. For r adiation dose reduction, the following was used: automated exposure control, adjustment of mA and/or kV according to patient size. COMPARISON: None. FINDINGS: Image quality: Excellent. CSF spaces: Basal cisterns are patent. No extra-axial fluid collections. Ventricles are normal in size and shape. Brain: No midline shift. No intracranial masses or hemorrhage. [place]-white matter interface is norm al. Skull and face: Calvarium and visualized facial bones are intact, without suspicious lesions. Sinuses: Mucosal thickening noted in the visualized right maxillary sinus and scattered throughout th e ethmoid air cells. 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 Mastoids are clear. IMPRESSION: No acute intracranial disease process. Reviewed by: Radha Lozada MD, PhD on 07/17/2021 7:39 AM PDT Approved by: Radha Lozada MD, PhD on 07/17/2021 7:39 AM PDT Station ID: [id number]
[2021-07-17 09:16] VITALS: BP 107/80
== END 2021-07-17 09:03 | disposition home or self-care (01) ==
LOC: ED 06:06
DX: R42 Dizziness and giddiness (principal); R53.83 Other fatigue; Z85.038 Personal history of other malignant neoplasm of large intestine
CPT/HCPCS: 36415; 80053; 83690; 83735; 84443; 84484; 85025; 85651; 86304; 93005; 99283; 99284

== ENCOUNTER 2021-11-29 14:05 | Outpatient (CLI) | payer MEDICAID | END 2021-11-29 23:59 | disposition home or self-care (01) | LOC: LAB.N 14:05 | PROVIDERS: ATTEND Physician Assistant | DX: J34.89 Other specified disorders of nose and nasal sinuses (principal); R05.9 Cough, unspecified; Z20.822 Contact with and (suspected) exposure to COVID-19 ==